=== PATIENT | male | born 2000 | race Hispanic/Latino ===

== ENCOUNTER 2021-04-27 19:23 | Emergency (ER) | payer OTHER ==
[2021-04-27] MEDS ORDERED: Bacitracin 1 PK ONE (20:29)
== END 2021-04-27 20:50 | disposition home or self-care (01) ==
LOC: NAV ERS 19:23
DX: S93.105A Unspecified dislocation of left toe(s), initial encounter (principal); W55.22XA Struck by cow, initial encounter